=== PATIENT | female | born 1985 | race Two or more races ===

== ENCOUNTER 2020-01-27 14:44 | Emergency (ER) | payer SELFPAY ==
[~2020-01-27] VITALS: Ht 170.2 cm; Wt 67.2 kg
[2020-01-27 14:59] VITALS: BP 123/71
== END 2020-01-27 15:30 | disposition home or self-care (01) ==
LOC: ED 15:19
DX: Z76.0 Encounter for issue of repeat prescription (principal); F31.9 Bipolar disorder, unspecified; J45.909 Unspecified asthma, uncomplicated; Z59.0 Homelessness
CPT/HCPCS: 99281